=== PATIENT | male | born 1955 | race Caucasian/White ===

== ENCOUNTER 2021-07-25 14:17 | Emergency (ER) | payer OTHER, BC, MEDICARE, SELFPAY ==
--- NOTE | ~2021-07-25 | XR_ITS ---
EXAMINATION: XR foot RT min 3V DATE: 07/25/2021 14:49 INDICATION: Right foot injury. TECHNIQUE: 4 views of right foot were obtained. COMPARISON: None. FINDINGS: Bone alignment is normal. No fracture. There is mild osteoarthritis of first metatarsophala ngeal joint and some the midfoot joints and interphalangeal joints. There is an enthesophyte at plant ar aspect of calcaneal tuberosity. IMPRESSION: 1. Mild polyarticular osteoarthritis. Reviewed, dictated and finalized at location E.
[2021-07-25 14:36] VITALS: BP 131/60; PULSE 74; RESP 18; TEMP 36.3; O2SAT 98
--- NOTE | 2021-07-25 14:50 | ED.LOWEXIN ---
HPI - Extremity Injury (Lower) General Chief Complaint: Extremity Injury, Lower Stated Complaint: right foot pain Time Seen by Provider: 07/25/21 14:45 Source: patient, family (), RN notes reviewed and old records reviewed Mode of arrival: ambulatory Limitations: no limitations History of Present Illness HPI Narrative: 65-year-old male presents to the [facility] with complaints of dorsal aspect right foot pain since Monday. Patient reports that he was at work when his foot got stuck underneath a rolling object. Bruising, swelling noted. Positive pedal pulse. Sensation intact in all 5 toes, most lateral and medial aspect of foot. Capillary refill under 2 seconds. Patient denies any significant past medical history MD complaint: foot injury (Right) Related Data Allergies Allergy/AdvReac Type Severity Reaction Status Date / Time No Known Allergies Allergy Verified 07/25/21 14:33 Review of Systems Review of Systems: All systems reviewed & are unremarkable except as noted in HPI and below Constitutional: Constitutional: Reports no additional constitutional complaints Eyes: Eyes: Reports no additional eye complaints ENT: Reports system reviewed and no additional complaints, except as documented Cardiovascular: Cardiovascular: Reports no additional cardiovascular complaints Respiratory: Respiratory: Reports no additional respiratory complaints Gastrointestinal: Gastrointestinal: Reports no additional gastrointestinal complaints Musculoskeletal: Musculoskeletal: Reports as per HPI, Reports abnormal gait (Limp favoring right foot), Denies deformity, Denies numbness and Reports other (Bruising swelling dorsal aspect right foot) Integumentary/Breasts: Skin/Breast: Reports system reviewed and no additional complaints, except as docu Neurologic: Reports system reviewed and no additional complaints, except as documented Psychiatric: Psychiatric: Reports no additional psychiatric complaints Allergic/Immunologic: Allergic/Immunologic: Reports no additional allergic/immunologic complaints PMFSH Past Medical History Medical History (Updated 07/26/21 @ 08:12 by Zelda Robbins APRN) No significant medical problems Surgical History Surgical History (Updated 07/25/21 @ 14:55 by Zelda Robbins APRN) History of lobectomy of lung Left lower due to emphysema Comments At the time of my signature, I reviewed and agree with the nursing past medical, surgical, social, and family history. There is no relevant family history pertinent to the patient complaint. Exam Const: General: healthy appearing, no acute distress and alert Nutritional Appearance: well nourished Orientation/consciousness: patient oriented x3 Limitations: no limitations HENMT: Head: normal to inspection Ears: external ears normal Eyes: Pupils: Equal, round and reactive pupils present Neck: Neck: normal visual inspection, no lymphadenopathy and no meningeal signs Chest: Chest palpation & inspection: normal inspection of the chest Resp: Effort & Inspection: normal respiratory effort Auscultation: clear to auscultation bilaterally Cardio: Rate: regular rate Rhythm: regular rhythm Back/Spine/Pelvis: Back: no CVA tenderness Skin: General skin exam: normal color Rashes: no rashes Wounds: no wounds Neuro: General: patient oriented x3, moves all extremities, no meningeal signs and no focal motor deficits Cranial nerves: Yes Equal, round and reactive pupils present Speech: normal speech Gait exam (Neuro): Normal gait present Extrem: Right lower extremity: foot Details: tenderness Location: of the dorsal foot and of the mid foot Location: dorsally, toes with normal ROM and ecchymosis (Dorsal aspect) Psych: Appearance: grossly normal and well kempt Mental Status: mental status grossly normal Affect: normal affect Attitude: cooperative Thought content: Yes Normal thought content present Course Course Emergency Course: Discharge instruction
== END 2021-07-25 15:27 | disposition home or self-care (01) ==
PROVIDERS: Emergency Provider Nurse Practitioner; PCP Family Medicine
DX: S90.31XA Contusion of right foot, initial encounter (principal); X58.XXXA Exposure to other specified factors, initial encounter; J43.9 Emphysema, unspecified
CPT/HCPCS: 73630; 99203; G0463

== ENCOUNTER 2024-09-13 10:49 | Outpatient (CLI) | payer MEDICARE, BC, SELFPAY ==
--- NOTE | ~2024-09-13 | PE_ITS ---
EXAMINATION: PET_PETPSMAST_PT DATE: 09/13/2024 13:43 INDICATION: Prostate cancer TECHNIQUE: 5.31 mCi of Illucix Ga-68([id number]) was administered i.v. Low dose computed tomog eddie (CT) images were acquired from the base of the brain to the base of the brain to the proximal t highs for attenuation correction and anatomic localization. Positron emission tomography (PET) images were acquired in the same distribution beginning 89 minutes after injection. Images including fused PET/CT images were reconstructed in axial, coronal, and sagittal planes. Automated exposure control t echnique was employed. The dose-length product was 672.47mGy-cm. 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 Partially visualized left parietal vivi hole. Typica l pattern of symmetric physiologic increased activity in the lacrimal, parotid and submandibular glan ds as well as along the mucosa of the nasal and oral cavities, pharynx and hypopharynx. No pathologic ally enlarged cervical lymphadenopathy or suspicious foci of increased uptake in the visualized head or neck. Chest: Volume loss in left hemithorax with suture line along the medial left upper lung suggesting prior par tial pneumonectomy most likely involving the left upper lobe. Emphysema. Moderate biapical pleural pa renchymal scarring with cavitary lesion at the left apex. Along linear bands of atelectasis/scarring at the right apex is a 1.9 x 1.5 cm spiculated nodular opacity without significant increased PSMA act ivity likely representing additional atelectasis/scarring. Couple calcified right middle lobe nodules and calcified right hilar lymph nodes consistent with old granulomatous disease. No other suspicious pulmonary nodules, pneumonia, pulmonary edema or pleural effusion. Heart size is normal. Small of at herosclerotic coronary artery calcific lesion. No pericardial effusion. Thoracic aorta is normal in c aliber. No pathologically enlarged or PSMA avid thoracic lymphadenopathy. Abdomen/pelvis/proximal thighs: Physiologic renal accumulation and excretion of activity in the kidneys, bladder and along portions o f ureters. Prostatomegaly measuring 5.1 x 3.4 cm. There is a region of increased uptake in the right peripheral zone of the prostate with maximal SUV of 8.7 consistent with primary prostate cancer. Norm al degree and slightly heterogenous pattern of increased uptake throughout the liver and spleen witho ut radiologic correlate or dominant PSMA avid lesion. There are few small hepatic and splenic calcifi c lesions consistent with old granulomatous disease. The gallbladder, pancreas and bilateral adrenal glands are normal. Moderate uptake scattered throughout the bowels with typical duodenal and proximal jejunal predominance and without radiologic correlate, also likely physiologic. Small metallic forei gn body of the posterior margin of the junction of the second and third portions of duodenum. There a re few scattered clonic diverticula without adjacent from trace stranding to suggest diverticular col itis. Normal appendix. There are multiple loops of distal small bowel extending to a large direct rig ht inguinal hernia. Short segment of the proximal sigmoid colon extends into a still large but slight ly smaller left direct inguinal hernia. There is a separate second moderate-sized fat-containing left direct inguinal hernia. No bowel obstruction. No other abnormal foci of increased uptake or patholog ically enlarged lymphadenopathy in the abdomen, pelvis or proximal thighs. Musculoskeletal: Small sclerotic bone island at the manubrium without abnormal PSA may uptake. No other suspicious lyt ic, blastic or abnormally PSMA avid bone lesions. IMPRESSION: 1. Region of increased uptake at the right peripheral zone of the enlarged prostate consistent with p rimary prostate cancer. No evident metastatic disease. 2. Loops of nonobstructed bowel extend into bilateral large inguinal hernias. 3. Moderate emphysema with change of prior partial left pneumonectomy. 4. Indeterminate 1.9 x 1.5 cm spiculated nodular opacity right apex without significant PSMA activity . Although likely atelectasis/scarring would recommend correlation with any prior outside imaging. If long-term stability cannot be confirmed would recommend further evaluation with either 3 month follo w-up noncontrast chest CT or standard FDG PET CT. Reviewed, dictated and finalized at location A. IMPRESSION: 1. Region of increased uptake at the right peripheral zone of the enlarged pros sparks consistent with primary prostate cancer. No evident metastatic disease. 2. Loops of nonobstructed bowel extend into bilateral large inguinal hernias. 3. Moderate emphysema with change of prior partial left pneumonectomy. 4. Indeterminate 1.9 x 1.5 cm spiculated nodular opacity right apex without sig nificant PSMA activity. Although likely atelectasis/scarring would recommend co rrelation with any prior outside imaging. If long-term stability cannot be conf irmed would recommend further evaluation with either 3 month follow-up noncontr ast chest CT or standard FDG PET CT.
== END 2024-09-13 10:50 | disposition home or self-care (01) ==
PROVIDERS: PCP Physician Assistant; Visit Provider Urology
DX: C61 Malignant neoplasm of prostate (principal)
CPT/HCPCS: 78815; A9596